=== PATIENT | female | born 1950 | race Caucasian/White ===

== ENCOUNTER 2019-01-22 08:15 | Day surgery (SDC) | payer OTHER ==
[~2019-01-22] VITALS: Ht 154.9 cm; Wt 65.6 kg
[~2019-01-22 08:15] MED LIST: ALBU90I INH; ALEN70 PO; ALPR.5 PO; ALPR1 PO; ASPI81CH PO; AZIT250 PO; Aspir 8181 MG PO; BUPR150ER PO; BUTASPCAFT PO; CALCIUM + D3 E1 EACH PO; CARV6.25 PO; CEFP200 PO; CEPH500 PO; CHOLESTEROL MED; CIPR500 PO; CODACE30 PO; Carvedilol6.25 MG PO; Crestor20 MG PO; DULO60 PO; Daily Multiple1 EACH PO; Desyrel150 MG PO; EUTHYROX200 MCG PO; FISH OIL 1,2001 EACH PO; GABA300T24 PO; KEPPRA XR750 MG PO; LEVE500 PO; LEVSOD125 PO; LEVSOD50 PO; LISI5 PO; METR500 PO; OMEP20ER PO; OXYACE5T PO; OXYC20ER PO; OXYC30 PO; OXYC30ER PO; PANT20 PO; PRED20 PO; QUET25 PO; QUETIAPINE FUM100 MG PO; RXLORA1 PO; Synthroid175 MCG PO; TIZA4 PO; TRAZ50 PO; Vitamin B-12100 MCG PO; Zanaflex4 MG PO; [UNRECOGNIZED DRUG - OTHER] PO
== END 2019-01-22 10:50 | disposition home or self-care (01) ==
LOC: ORSCSDS 08:15
PROVIDERS: Internal Medicine Gastroenterology
PROC: 0DBM8ZX Excision of Descending Colon, Via Natural or Artificial Opening Endoscopic, Diagnostic (ICD-10-PCS; principal; 2019-01-22 09:30)
DX: Z12.11 Encounter for screening for malignant neoplasm of colon (principal); K57.30 Diverticulosis of large intestine without perforation or abscess without bleeding; K64.8 Other hemorrhoids; E03.9 Hypothyroidism, unspecified; J44.9 Chronic obstructive pulmonary disease, unspecified; E78.5 Hyperlipidemia, unspecified; F41.8 Other specified anxiety disorders; F17.210 Nicotine dependence, cigarettes, uncomplicated; Z79.82 Long term (current) use of aspirin; Z79.899 Other long term (current) drug therapy
CPT/HCPCS: 88305; J2704; J7120